=== PATIENT | male | born 1955 | race Caucasian/White ===

== ENCOUNTER → 2022-02-19 | Outpatient (REF) | payer OTHER | LOC: M LAB REF 16:22 | PROVIDERS: ATTEND Internal Medicine | DX: Z13.89 Encounter for screening for other disorder (principal) ==

== ENCOUNTER → 2022-04-13 | Outpatient (CLI) | payer MEDICARE | LOC: M RAD 06:35 | PROVIDERS: ATTEND Internal Medicine | DX: R94.31 Abnormal electrocardiogram [ECG] [EKG] (principal); Z87.891 Personal history of nicotine dependence; Z13.6 Encounter for screening for cardiovascular disorders; I70.0 Atherosclerosis of aorta; I35.1 Nonrheumatic aortic (valve) insufficiency ==

== ENCOUNTER → 2022-10-04 | Outpatient (CLI) | payer MEDICARE | LOC: M RAD 11:45 | PROVIDERS: ATTEND Internal Medicine | DX: M79.662 Pain in left lower leg (principal) ==

== ENCOUNTER 2023-02-18 10:41 | Day surgery (SDC) | payer MEDICARE ==
[~2023-02-18] VITALS: Ht 177.8 cm; Wt 79.8 kg
[~2023-02-18 10:41] MED LIST: AMLO1TAB24 PO; NS 1,000 ML IV ONE; OLME1TAB PO; OYST1TAB PO; ROSU10TA6 PO; THERTAB52 PO; VITA100T91 PO; VITA200031 PO; VITATAB73 PO
[2023-02-18] MEDS ORDERED: propofoL 200 MG/20 ML VIAL As Ordered ONE ×3 (11:06→12:46)
[2023-02-18 13:31] VITALS: BP 167/89; O2SAT 99
== END 2023-02-18 13:38 | disposition home or self-care (01) ==
LOC: M OPP 10:41
PROVIDERS: ATTEND Internal Medicine Gastroenterology
DX: Z12.11 Encounter for screening for malignant neoplasm of colon (principal); D12.2 Benign neoplasm of ascending colon; D12.8 Benign neoplasm of rectum; K64.0 First degree hemorrhoids; Z87.891 Personal history of nicotine dependence; Z79.02 Long term (current) use of antithrombotics/antiplatelets; Z79.899 Other long term (current) drug therapy